=== PATIENT | female | born 1955 | race American Indian/Alaskan Native ===

== ENCOUNTER 2016-12-05 08:04 | Outpatient (CLI) | payer MEDICARE ==
[2016-12-05] MEDS ORDERED: XYLOCAINE 1% 20 mL ONE (08:36)
[2016-12-05] MEDS ORDERED: XYLOCAINE 1% 20 mL INFILTRATI ONE (08:52)
== END 2016-12-05 08:05 | disposition home or self-care (01) ==
LOC: WOUND 08:04
PROVIDERS: ATTEND Surgery
DX: L97.511 Non-pressure chronic ulcer of other part of right foot limited to breakdown of skin (principal); I25.10 Atherosclerotic heart disease of native coronary artery without angina pectoris; E11.22 Type 2 diabetes mellitus with diabetic chronic kidney disease; I12.0 Hypertensive chronic kidney disease with stage 5 chronic kidney disease or end stage renal disease; N18.5 Chronic kidney disease, stage 5; K21.9 Gastro-esophageal reflux disease without esophagitis; E03.9 Hypothyroidism, unspecified
CPT/HCPCS: 11720; 11730; G0463

== ENCOUNTER 2016-12-12 08:49 | Outpatient (CLI) | payer MEDICARE ==
[2016-12-12] MEDS ORDERED: XYLOCAINE TOPICAL 4% TP ONE ×2 (09:16→09:24)
== END 2016-12-12 08:50 | disposition home or self-care (01) ==
LOC: WOUND 08:49
PROVIDERS: ATTEND Surgery
DX: L97.511 Non-pressure chronic ulcer of other part of right foot limited to breakdown of skin (principal); I25.10 Atherosclerotic heart disease of native coronary artery without angina pectoris; I12.0 Hypertensive chronic kidney disease with stage 5 chronic kidney disease or end stage renal disease; N18.6 End stage renal disease; K21.9 Gastro-esophageal reflux disease without esophagitis; E03.9 Hypothyroidism, unspecified

== ENCOUNTER 2016-12-19 08:51 | Outpatient (CLI) | payer MEDICARE ==
[2016-12-19] MEDS ORDERED: XYLOCAINE TOPICAL 4% TP ONE ×2 (09:20→10:00)
== END 2016-12-19 08:52 | disposition home or self-care (01) ==
LOC: WOUND 08:51
PROVIDERS: ATTEND Surgery
DX: L97.511 Non-pressure chronic ulcer of other part of right foot limited to breakdown of skin (principal); I25.10 Atherosclerotic heart disease of native coronary artery without angina pectoris; I12.0 Hypertensive chronic kidney disease with stage 5 chronic kidney disease or end stage renal disease; N18.6 End stage renal disease; K21.9 Gastro-esophageal reflux disease without esophagitis; E03.9 Hypothyroidism, unspecified
CPT/HCPCS: 99213; G0463

== ENCOUNTER 2016-12-28 10:16 | Outpatient (CLI) | payer MEDICARE ==
[2016-12-28] MEDS ORDERED: XYLOCAINE TOPICAL 2% ONE (10:36)
[2016-12-28] MEDS ORDERED: XYLOCAINE TOPICAL 4% TP ONE (10:48)
[2016-12-28] MEDS ORDERED: TRIPLE ANTIBIOTIC TP ONE (11:48)
== END 2016-12-28 10:17 | disposition home or self-care (01) ==
LOC: WOUND 10:16
PROVIDERS: ATTEND Podiatrist
DX: I70.235 Atherosclerosis of native arteries of right leg with ulceration of other part of foot (principal); L97.511 Non-pressure chronic ulcer of other part of right foot limited to breakdown of skin; I12.0 Hypertensive chronic kidney disease with stage 5 chronic kidney disease or end stage renal disease; Z99.2 Dependence on renal dialysis
CPT/HCPCS: 99215; A6250; G0463

== ENCOUNTER 2016-12-28 12:23 | Outpatient (CLI) | payer MEDICARE ==
--- NOTE | 2016-12-28 15:31 | XRay Report ---
Chest 2 views: History: Hypertension. Findings: Borderline cardiomegaly. Trachea is midline. Sternal wires stable. No acute consolidation, pneumothorax or pleural effusion. Impression: No acute cardiopulmonary findings.
== END 2016-12-28 12:24 | disposition home or self-care (01) ==
LOC: XRAY 12:23
PROVIDERS: ATTEND Surgery
DX: I12.0 Hypertensive chronic kidney disease with stage 5 chronic kidney disease or end stage renal disease (principal); N18.6 End stage renal disease; K21.9 Gastro-esophageal reflux disease without esophagitis; J45.909 Unspecified asthma, uncomplicated; J18.9 Pneumonia, unspecified organism
CPT/HCPCS: 71020

== ENCOUNTER 2017-01-04 09:01 | Outpatient (CLI) | payer MEDICARE ==
[2017-01-04] MEDS ORDERED: XYLOCAINE TOPICAL 4% TP ONE ×2 (09:06→09:22)
== END 2017-01-04 09:02 | disposition home or self-care (01) ==
LOC: WOUND 09:01
PROVIDERS: ATTEND Podiatrist
DX: I70.235 Atherosclerosis of native arteries of right leg with ulceration of other part of foot (principal); L97.511 Non-pressure chronic ulcer of other part of right foot limited to breakdown of skin; I12.0 Hypertensive chronic kidney disease with stage 5 chronic kidney disease or end stage renal disease; N18.5 Chronic kidney disease, stage 5; B35.1 Tinea unguium; Z99.2 Dependence on renal dialysis
CPT/HCPCS: 97597

== ENCOUNTER 2017-01-04 10:30 | Outpatient (CLI) | payer MEDICARE ==
--- NOTE | 2017-01-04 11:33 | XRay Report ---
Right foot 3 views: History: Ulceration hallux/pain. Findings: Generalized severe osteopenia. No periosteal reaction or lytic lesion. Arthritic changes in the first tarsometatarsal and metatarsophalangeal and interphalangeal joint and interphalangeal joints of second, third, fourth and fifth toes. There is suspected severe osteopenia with ill-defined ungual tuft great toe right foot probably related to osteomyelitis. Impression: Findings as detailed above. If clinically indicated MRI scan may be recommended. Impression: No obvious radiographic evidence of osteomyelitis.
== END 2017-01-04 10:31 | disposition home or self-care (01) ==
LOC: XRAY 10:30
PROVIDERS: ATTEND Podiatrist
DX: L97.519 Non-pressure chronic ulcer of other part of right foot with unspecified severity (principal); M19.071 Primary osteoarthritis, right ankle and foot; M85.871 Other specified disorders of bone density and structure, right ankle and foot; I12.0 Hypertensive chronic kidney disease with stage 5 chronic kidney disease or end stage renal disease; N18.6 End stage renal disease; J45.909 Unspecified asthma, uncomplicated

== ENCOUNTER 2017-01-11 09:05 | Outpatient (CLI) | payer MEDICARE ==
[2017-01-11] MEDS ORDERED: XYLOCAINE TOPICAL 4% TP ONE ×2 (09:12→09:24)
== END 2017-01-11 09:06 | disposition home or self-care (01) ==
LOC: WOUND 09:05
PROVIDERS: ATTEND Podiatrist
DX: I70.235 Atherosclerosis of native arteries of right leg with ulceration of other part of foot (principal); L97.511 Non-pressure chronic ulcer of other part of right foot limited to breakdown of skin; I12.0 Hypertensive chronic kidney disease with stage 5 chronic kidney disease or end stage renal disease; N18.5 Chronic kidney disease, stage 5; I96 Gangrene, not elsewhere classified; Z99.2 Dependence on renal dialysis
CPT/HCPCS: 99214; G0463

== ENCOUNTER 2017-01-18 09:03 | Outpatient (CLI) | payer MEDICARE ==
[~2017-01-18 09:03] MED LIST: XYLOCAINE TOPICAL 4% TP ONE
[2017-01-18] MEDS ORDERED: XYLOCAINE TOPICAL 4% TP ONE (09:19)
[2017-01-18] MEDS ORDERED: AD OINTMENT TP ONE (09:48)
[2017-01-19] MEDS ORDERED: AD OINTMENT TP SCH (10:00)
== END 2017-01-18 09:04 | disposition home or self-care (01) ==
LOC: WOUND 09:03
PROVIDERS: ATTEND Podiatrist
DX: I70.235 Atherosclerosis of native arteries of right leg with ulceration of other part of foot (principal); L97.511 Non-pressure chronic ulcer of other part of right foot limited to breakdown of skin; I12.0 Hypertensive chronic kidney disease with stage 5 chronic kidney disease or end stage renal disease; N18.5 Chronic kidney disease, stage 5; I96 Gangrene, not elsewhere classified; Z99.2 Dependence on renal dialysis
CPT/HCPCS: 99214; A6250; G0463

== ENCOUNTER 2017-01-31 13:43 | Outpatient (CLI) | payer MEDICARE | END 2017-01-31 13:44 | disposition home or self-care (01) | LOC: WOUND 13:43 | PROVIDERS: ATTEND Nurse Practitioner | DX: I70.235 Atherosclerosis of native arteries of right leg with ulceration of other part of foot (principal); L97.511 Non-pressure chronic ulcer of other part of right foot limited to breakdown of skin; I12.0 Hypertensive chronic kidney disease with stage 5 chronic kidney disease or end stage renal disease; N18.6 End stage renal disease; Z99.2 Dependence on renal dialysis; I96 Gangrene, not elsewhere classified; M86.68 Other chronic osteomyelitis, other site | CPT/HCPCS: G0277 ×2; 99183 ==

== ENCOUNTER 2017-02-01 11:57 | Outpatient (CLI) | payer MEDICARE ==
[2017-02-01] MEDS ORDERED: XYLOCAINE TOPICAL 4% TP ONE ×2 (12:10→15:47)
== END 2017-02-01 11:58 | disposition home or self-care (01) ==
LOC: WOUND 11:57
PROVIDERS: ATTEND Podiatrist
DX: I70.235 Atherosclerosis of native arteries of right leg with ulceration of other part of foot (principal); L97.511 Non-pressure chronic ulcer of other part of right foot limited to breakdown of skin; I12.0 Hypertensive chronic kidney disease with stage 5 chronic kidney disease or end stage renal disease; N18.6 End stage renal disease; Z99.2 Dependence on renal dialysis; I96 Gangrene, not elsewhere classified; Z96.642 Presence of left artificial hip joint
CPT/HCPCS: 99214; G0463

== ENCOUNTER 2017-02-04 12:26 | Outpatient (CLI) | payer MEDICARE | END 2017-02-04 12:27 | disposition home or self-care (01) | LOC: WOUND 12:26 | PROVIDERS: ATTEND Internal Medicine | DX: I70.235 Atherosclerosis of native arteries of right leg with ulceration of other part of foot (principal); L97.511 Non-pressure chronic ulcer of other part of right foot limited to breakdown of skin; I12.0 Hypertensive chronic kidney disease with stage 5 chronic kidney disease or end stage renal disease; N18.6 End stage renal disease; I96 Gangrene, not elsewhere classified; M86.68 Other chronic osteomyelitis, other site; Z99.2 Dependence on renal dialysis | CPT/HCPCS: G0277 ×2; 99183 ==

== ENCOUNTER 2017-02-06 13:03 | Outpatient (CLI) | payer MEDICARE | END 2017-02-06 13:04 | disposition home or self-care (01) | LOC: WOUND 13:03 | PROVIDERS: ATTEND Surgery | DX: I70.235 Atherosclerosis of native arteries of right leg with ulceration of other part of foot (principal); L97.511 Non-pressure chronic ulcer of other part of right foot limited to breakdown of skin; M86.68 Other chronic osteomyelitis, other site; I12.0 Hypertensive chronic kidney disease with stage 5 chronic kidney disease or end stage renal disease; N18.6 End stage renal disease; Z99.2 Dependence on renal dialysis; I96 Gangrene, not elsewhere classified; Z96.642 Presence of left artificial hip joint | CPT/HCPCS: G0277 ×2; 99183 ==

== ENCOUNTER 2017-02-07 13:22 | Outpatient (CLI) | payer MEDICARE | END 2017-02-07 13:23 | disposition home or self-care (01) | LOC: WOUND 13:22 | PROVIDERS: ATTEND Nurse Practitioner | DX: I70.235 Atherosclerosis of native arteries of right leg with ulceration of other part of foot (principal); L97.511 Non-pressure chronic ulcer of other part of right foot limited to breakdown of skin; I12.0 Hypertensive chronic kidney disease with stage 5 chronic kidney disease or end stage renal disease; N18.5 Chronic kidney disease, stage 5; I96 Gangrene, not elsewhere classified; Z99.2 Dependence on renal dialysis; Z96.642 Presence of left artificial hip joint | CPT/HCPCS: G0277 ×2; 99183 ==

== ENCOUNTER 2017-02-08 08:28 | Outpatient (CLI) | payer MEDICARE ==
[2017-02-08] MEDS ORDERED: XYLOCAINE TOPICAL 4% TP ONE ×2 (08:43)
== END 2017-02-08 08:29 | disposition home or self-care (01) ==
LOC: WOUND 08:28
PROVIDERS: ATTEND Podiatrist
DX: I70.235 Atherosclerosis of native arteries of right leg with ulceration of other part of foot (principal); L97.511 Non-pressure chronic ulcer of other part of right foot limited to breakdown of skin; I12.0 Hypertensive chronic kidney disease with stage 5 chronic kidney disease or end stage renal disease; N18.5 Chronic kidney disease, stage 5; I96 Gangrene, not elsewhere classified; Z99.2 Dependence on renal dialysis; Z96.642 Presence of left artificial hip joint
CPT/HCPCS: G0277; G0463; 99183

== ENCOUNTER 2017-02-11 13:10 | Outpatient (CLI) | payer MEDICARE | END 2017-02-11 13:11 | disposition home or self-care (01) | LOC: WOUND 13:10 | PROVIDERS: ATTEND Internal Medicine | DX: I70.235 Atherosclerosis of native arteries of right leg with ulceration of other part of foot (principal); L97.511 Non-pressure chronic ulcer of other part of right foot limited to breakdown of skin; I12.0 Hypertensive chronic kidney disease with stage 5 chronic kidney disease or end stage renal disease; N18.6 End stage renal disease; I96 Gangrene, not elsewhere classified; Z96.642 Presence of left artificial hip joint; Z99.2 Dependence on renal dialysis | CPT/HCPCS: G0277 ×2; 99183 ==

== ENCOUNTER 2017-02-13 13:13 | Outpatient (CLI) | payer MEDICARE | END 2017-02-13 13:14 | disposition home or self-care (01) | LOC: WOUND 13:13 | PROVIDERS: ATTEND Surgery | DX: I70.235 Atherosclerosis of native arteries of right leg with ulceration of other part of foot (principal); L97.511 Non-pressure chronic ulcer of other part of right foot limited to breakdown of skin; I12.0 Hypertensive chronic kidney disease with stage 5 chronic kidney disease or end stage renal disease; M86.68 Other chronic osteomyelitis, other site; Z99.2 Dependence on renal dialysis; Z96.642 Presence of left artificial hip joint | CPT/HCPCS: G0277 ×2; 99183 ==

== ENCOUNTER 2017-02-26 13:05 | Outpatient (CLI) | payer MEDICARE | END 2017-02-26 13:06 | disposition home or self-care (01) | LOC: WOUND 13:05 | PROVIDERS: ATTEND Internal Medicine | DX: I70.235 Atherosclerosis of native arteries of right leg with ulceration of other part of foot (principal); L97.511 Non-pressure chronic ulcer of other part of right foot limited to breakdown of skin; I12.0 Hypertensive chronic kidney disease with stage 5 chronic kidney disease or end stage renal disease; N18.5 Chronic kidney disease, stage 5; I96 Gangrene, not elsewhere classified; Z99.2 Dependence on renal dialysis; Z96.642 Presence of left artificial hip joint | CPT/HCPCS: G0277 ×2; 99183 ==

== ENCOUNTER 2017-02-27 13:14 | Outpatient (CLI) | payer MEDICARE | END 2017-02-27 13:15 | disposition home or self-care (01) | LOC: WOUND 13:14 | PROVIDERS: ATTEND Surgery | DX: I70.235 Atherosclerosis of native arteries of right leg with ulceration of other part of foot (principal); L97.511 Non-pressure chronic ulcer of other part of right foot limited to breakdown of skin; I12.0 Hypertensive chronic kidney disease with stage 5 chronic kidney disease or end stage renal disease; M86.68 Other chronic osteomyelitis, other site; Z99.2 Dependence on renal dialysis; Z96.642 Presence of left artificial hip joint | CPT/HCPCS: G0277 ×2; 99183 ==

== ENCOUNTER 2017-02-28 11:07 | Outpatient (CLI) | payer MEDICARE | END 2017-02-28 11:08 | disposition home or self-care (01) | LOC: WOUND 11:07 | PROVIDERS: ATTEND Nurse Practitioner | DX: I70.235 Atherosclerosis of native arteries of right leg with ulceration of other part of foot (principal); L97.511 Non-pressure chronic ulcer of other part of right foot limited to breakdown of skin; I12.0 Hypertensive chronic kidney disease with stage 5 chronic kidney disease or end stage renal disease; M86.68 Other chronic osteomyelitis, other site; Z99.2 Dependence on renal dialysis; Z96.642 Presence of left artificial hip joint | CPT/HCPCS: G0277 ×2; 99183 ==

== ENCOUNTER 2017-03-01 09:02 | Outpatient (CLI) | payer MEDICARE ==
[2017-03-01] MEDS ORDERED: XYLOCAINE TOPICAL 4% TP ONE (10:23)
[2017-03-01] MEDS ORDERED: XYLOCAINE TOPICAL 2% TP ONE (10:24)
== END 2017-03-01 09:03 | disposition home or self-care (01) ==
LOC: WOUND 09:02
PROVIDERS: ATTEND Podiatrist
DX: I70.235 Atherosclerosis of native arteries of right leg with ulceration of other part of foot (principal); L97.511 Non-pressure chronic ulcer of other part of right foot limited to breakdown of skin; I12.0 Hypertensive chronic kidney disease with stage 5 chronic kidney disease or end stage renal disease; M86.68 Other chronic osteomyelitis, other site; Z99.2 Dependence on renal dialysis; Z96.642 Presence of left artificial hip joint
CPT/HCPCS: G0277; G0463; 99183

== ENCOUNTER 2017-03-05 12:53 | Outpatient (CLI) | payer MEDICARE | END 2017-03-05 12:54 | disposition home or self-care (01) | LOC: WOUND 12:53 | PROVIDERS: ATTEND Surgery | DX: I70.235 Atherosclerosis of native arteries of right leg with ulceration of other part of foot (principal); L97.511 Non-pressure chronic ulcer of other part of right foot limited to breakdown of skin; I12.0 Hypertensive chronic kidney disease with stage 5 chronic kidney disease or end stage renal disease; N18.6 End stage renal disease; M86.68 Other chronic osteomyelitis, other site; I96 Gangrene, not elsewhere classified; Z99.2 Dependence on renal dialysis; Z96.642 Presence of left artificial hip joint | CPT/HCPCS: G0277 ×2; 99183 ==

== ENCOUNTER 2017-03-06 13:22 | Outpatient (CLI) | payer MEDICARE | END 2017-03-06 13:23 | disposition home or self-care (01) | LOC: WOUND 13:22 | PROVIDERS: ATTEND Surgery | DX: I70.235 Atherosclerosis of native arteries of right leg with ulceration of other part of foot (principal); L97.811 Non-pressure chronic ulcer of other part of right lower leg limited to breakdown of skin; I12.0 Hypertensive chronic kidney disease with stage 5 chronic kidney disease or end stage renal disease; N18.5 Chronic kidney disease, stage 5; I96 Gangrene, not elsewhere classified; Z99.2 Dependence on renal dialysis; Z96.642 Presence of left artificial hip joint | CPT/HCPCS: G0277 ×2; 99183 ==

== ENCOUNTER 2017-03-07 12:56 | Outpatient (CLI) | payer MEDICARE | END 2017-03-07 12:57 | disposition home or self-care (01) | LOC: WOUND 12:56 | PROVIDERS: ATTEND Internal Medicine | DX: I70.235 Atherosclerosis of native arteries of right leg with ulceration of other part of foot (principal); L97.511 Non-pressure chronic ulcer of other part of right foot limited to breakdown of skin; I12.0 Hypertensive chronic kidney disease with stage 5 chronic kidney disease or end stage renal disease; N18.5 Chronic kidney disease, stage 5; I96 Gangrene, not elsewhere classified; Z99.2 Dependence on renal dialysis; Z96.642 Presence of left artificial hip joint | CPT/HCPCS: G0277 ×2; 99183 ==

== ENCOUNTER 2017-03-08 08:29 | Outpatient (CLI) | payer MEDICARE | END 2017-03-08 08:30 | disposition home or self-care (01) | LOC: WOUND 08:29 | PROVIDERS: ATTEND Podiatrist | DX: I70.235 Atherosclerosis of native arteries of right leg with ulceration of other part of foot (principal); L97.511 Non-pressure chronic ulcer of other part of right foot limited to breakdown of skin; I12.0 Hypertensive chronic kidney disease with stage 5 chronic kidney disease or end stage renal disease; N18.6 End stage renal disease; M86.68 Other chronic osteomyelitis, other site; I96 Gangrene, not elsewhere classified; Z99.2 Dependence on renal dialysis; Z96.642 Presence of left artificial hip joint | CPT/HCPCS: G0277 ×2; 99183 ==

== ENCOUNTER 2017-03-20 13:07 | Outpatient (CLI) | payer MEDICARE | END 2017-03-20 13:08 | disposition home or self-care (01) | LOC: WOUND 13:07 | PROVIDERS: ATTEND Surgery | DX: I70.235 Atherosclerosis of native arteries of right leg with ulceration of other part of foot (principal); L97.511 Non-pressure chronic ulcer of other part of right foot limited to breakdown of skin; I12.0 Hypertensive chronic kidney disease with stage 5 chronic kidney disease or end stage renal disease; N18.5 Chronic kidney disease, stage 5; I96 Gangrene, not elsewhere classified; Z99.2 Dependence on renal dialysis; Z96.642 Presence of left artificial hip joint | CPT/HCPCS: G0277 ×2; 99183 ==

== ENCOUNTER 2017-03-21 13:02 | Outpatient (CLI) | payer MEDICARE | END 2017-03-21 13:03 | disposition home or self-care (01) | LOC: WOUND 13:02 | PROVIDERS: ATTEND Nurse Practitioner | DX: I70.235 Atherosclerosis of native arteries of right leg with ulceration of other part of foot (principal); L97.511 Non-pressure chronic ulcer of other part of right foot limited to breakdown of skin; I12.0 Hypertensive chronic kidney disease with stage 5 chronic kidney disease or end stage renal disease; N18.5 Chronic kidney disease, stage 5; I96 Gangrene, not elsewhere classified; Z96.642 Presence of left artificial hip joint | CPT/HCPCS: G0277 ×2; 99183 ==

== ENCOUNTER 2017-03-22 13:12 | Outpatient (CLI) | payer MEDICARE | END 2017-03-22 13:13 | disposition home or self-care (01) | LOC: WOUND 13:12 | PROVIDERS: ATTEND Podiatrist | DX: I70.235 Atherosclerosis of native arteries of right leg with ulceration of other part of foot (principal); L97.511 Non-pressure chronic ulcer of other part of right foot limited to breakdown of skin; I12.0 Hypertensive chronic kidney disease with stage 5 chronic kidney disease or end stage renal disease; N18.5 Chronic kidney disease, stage 5; I96 Gangrene, not elsewhere classified; Z99.2 Dependence on renal dialysis; Z96.642 Presence of left artificial hip joint | CPT/HCPCS: G0277; G0463; 99183; 99213 ==

== ENCOUNTER 2017-04-08 13:11 | Outpatient (CLI) | payer MEDICARE | END 2017-04-08 13:12 | disposition home or self-care (01) | LOC: WOUND 13:11 | PROVIDERS: ATTEND Internal Medicine | DX: I70.235 Atherosclerosis of native arteries of right leg with ulceration of other part of foot (principal); L97.511 Non-pressure chronic ulcer of other part of right foot limited to breakdown of skin; I12.0 Hypertensive chronic kidney disease with stage 5 chronic kidney disease or end stage renal disease; N18.5 Chronic kidney disease, stage 5; Z99.2 Dependence on renal dialysis; I96 Gangrene, not elsewhere classified; Z96.642 Presence of left artificial hip joint | CPT/HCPCS: G0277 ×2; 99183 ==

== ENCOUNTER 2017-04-22 12:15 | Outpatient (CLI) | payer MEDICARE | END 2017-04-22 12:16 | disposition home or self-care (01) | LOC: WOUND 12:15 | PROVIDERS: ATTEND Surgery | DX: I70.235 Atherosclerosis of native arteries of right leg with ulceration of other part of foot (principal); L97.511 Non-pressure chronic ulcer of other part of right foot limited to breakdown of skin; I12.9 Hypertensive chronic kidney disease with stage 1 through stage 4 chronic kidney disease, or unspecified chronic kidney disease; N18.9 Chronic kidney disease, unspecified; A48.0 Gas gangrene; Z96.642 Presence of left artificial hip joint; Z99.2 Dependence on renal dialysis | CPT/HCPCS: G0277 ×2; 99183 ==

== ENCOUNTER 2017-04-23 13:38 | Outpatient (CLI) | payer MEDICARE | END 2017-04-23 13:39 | disposition home or self-care (01) | LOC: WOUND 13:38 | PROVIDERS: ATTEND Surgery | DX: I70.235 Atherosclerosis of native arteries of right leg with ulceration of other part of foot (principal); L97.511 Non-pressure chronic ulcer of other part of right foot limited to breakdown of skin; E11.22 Type 2 diabetes mellitus with diabetic chronic kidney disease; I12.0 Hypertensive chronic kidney disease with stage 5 chronic kidney disease or end stage renal disease; N18.6 End stage renal disease; I96 Gangrene, not elsewhere classified; Z99.2 Dependence on renal dialysis; Z96.642 Presence of left artificial hip joint | CPT/HCPCS: G0277 ×2; 99183 ==

== ENCOUNTER 2017-04-25 11:42 | Outpatient (CLI) | payer MEDICARE | END 2017-04-25 11:43 | disposition home or self-care (01) | LOC: WOUND 11:42 | PROVIDERS: ATTEND Podiatrist | DX: I70.235 Atherosclerosis of native arteries of right leg with ulceration of other part of foot (principal); L97.511 Non-pressure chronic ulcer of other part of right foot limited to breakdown of skin; I12.9 Hypertensive chronic kidney disease with stage 1 through stage 4 chronic kidney disease, or unspecified chronic kidney disease; N18.9 Chronic kidney disease, unspecified; A48.0 Gas gangrene; Z96.642 Presence of left artificial hip joint; Z99.2 Dependence on renal dialysis | CPT/HCPCS: G0277 ×2; 99183 ==

== ENCOUNTER 2017-04-26 11:13 | Outpatient (CLI) | payer MEDICARE | END 2017-04-26 11:14 | disposition home or self-care (01) | LOC: WOUND 11:13 | PROVIDERS: ATTEND Podiatrist | DX: I70.235 Atherosclerosis of native arteries of right leg with ulceration of other part of foot (principal); L97.511 Non-pressure chronic ulcer of other part of right foot limited to breakdown of skin; I12.0 Hypertensive chronic kidney disease with stage 5 chronic kidney disease or end stage renal disease; N18.5 Chronic kidney disease, stage 5; I96 Gangrene, not elsewhere classified; Z96.642 Presence of left artificial hip joint; Z99.2 Dependence on renal dialysis | CPT/HCPCS: G0277; G0463; 99183; 99214 ==

== ENCOUNTER 2017-04-29 13:15 | Outpatient (CLI) | payer MEDICARE | END 2017-04-29 13:16 | disposition home or self-care (01) | LOC: WOUND 13:15 | PROVIDERS: ATTEND Internal Medicine | DX: I70.235 Atherosclerosis of native arteries of right leg with ulceration of other part of foot (principal); L97.811 Non-pressure chronic ulcer of other part of right lower leg limited to breakdown of skin; I12.0 Hypertensive chronic kidney disease with stage 5 chronic kidney disease or end stage renal disease; N18.5 Chronic kidney disease, stage 5; I96 Gangrene, not elsewhere classified; Z99.2 Dependence on renal dialysis; Z96.642 Presence of left artificial hip joint | CPT/HCPCS: G0277 ×2; 99183 ==

== ENCOUNTER 2017-04-30 13:28 | Outpatient (CLI) | payer MEDICARE | END 2017-04-30 13:29 | disposition home or self-care (01) | LOC: WOUND 13:28 | PROVIDERS: ATTEND Surgery | DX: I70.235 Atherosclerosis of native arteries of right leg with ulceration of other part of foot (principal); L97.511 Non-pressure chronic ulcer of other part of right foot limited to breakdown of skin; I12.0 Hypertensive chronic kidney disease with stage 5 chronic kidney disease or end stage renal disease; N18.6 End stage renal disease; Z99.2 Dependence on renal dialysis; I96 Gangrene, not elsewhere classified; Z96.642 Presence of left artificial hip joint | CPT/HCPCS: G0277 ×2; 99183 ==

== ENCOUNTER 2017-05-01 13:17 | Outpatient (CLI) | payer MEDICARE | END 2017-05-01 13:18 | disposition home or self-care (01) | LOC: WOUND 13:17 | PROVIDERS: ATTEND Surgery | DX: I70.235 Atherosclerosis of native arteries of right leg with ulceration of other part of foot (principal); L97.511 Non-pressure chronic ulcer of other part of right foot limited to breakdown of skin; I12.0 Hypertensive chronic kidney disease with stage 5 chronic kidney disease or end stage renal disease; N18.5 Chronic kidney disease, stage 5; I96 Gangrene, not elsewhere classified; Z99.2 Dependence on renal dialysis; Z96.642 Presence of left artificial hip joint | CPT/HCPCS: G0277 ×2; 99183 ==

== ENCOUNTER 2017-05-06 13:04 | Outpatient (CLI) | payer MEDICARE | END 2017-05-06 13:05 | disposition home or self-care (01) | LOC: WOUND 13:04 | PROVIDERS: ATTEND Internal Medicine | DX: I70.235 Atherosclerosis of native arteries of right leg with ulceration of other part of foot (principal); L97.511 Non-pressure chronic ulcer of other part of right foot limited to breakdown of skin; I12.0 Hypertensive chronic kidney disease with stage 5 chronic kidney disease or end stage renal disease; N18.6 End stage renal disease; Z99.2 Dependence on renal dialysis; I96 Gangrene, not elsewhere classified; Z96.642 Presence of left artificial hip joint | CPT/HCPCS: 82962; G0277; 99183 ==

== ENCOUNTER 2017-05-14 12:22 | Outpatient (CLI) | payer MEDICARE | END 2017-05-14 12:23 | disposition home or self-care (01) | LOC: WOUND 12:22 | PROVIDERS: ATTEND Surgery | DX: I70.235 Atherosclerosis of native arteries of right leg with ulceration of other part of foot (principal); L97.511 Non-pressure chronic ulcer of other part of right foot limited to breakdown of skin; I12.0 Hypertensive chronic kidney disease with stage 5 chronic kidney disease or end stage renal disease; N18.5 Chronic kidney disease, stage 5; A48.0 Gas gangrene; Z99.2 Dependence on renal dialysis; Z96.642 Presence of left artificial hip joint | CPT/HCPCS: G0277 ×2; 99183 ==

== ENCOUNTER 2017-05-15 13:14 | Outpatient (CLI) | payer MEDICARE | END 2017-05-15 13:15 | disposition home or self-care (01) | LOC: WOUND 13:14 | PROVIDERS: ATTEND Surgery | DX: I70.235 Atherosclerosis of native arteries of right leg with ulceration of other part of foot (principal); L97.511 Non-pressure chronic ulcer of other part of right foot limited to breakdown of skin; I12.0 Hypertensive chronic kidney disease with stage 5 chronic kidney disease or end stage renal disease; N18.5 Chronic kidney disease, stage 5; A48.0 Gas gangrene; Z99.2 Dependence on renal dialysis; Z96.642 Presence of left artificial hip joint | CPT/HCPCS: G0277 ×2; 99183 ==

== ENCOUNTER 2017-05-16 12:58 | Outpatient (CLI) | payer MEDICARE | END 2017-05-16 12:59 | disposition home or self-care (01) | LOC: WOUND 12:58 | PROVIDERS: ATTEND Nurse Practitioner | DX: I70.235 Atherosclerosis of native arteries of right leg with ulceration of other part of foot (principal); L97.511 Non-pressure chronic ulcer of other part of right foot limited to breakdown of skin; I12.0 Hypertensive chronic kidney disease with stage 5 chronic kidney disease or end stage renal disease; N18.5 Chronic kidney disease, stage 5; A48.0 Gas gangrene; Z99.2 Dependence on renal dialysis; Z96.642 Presence of left artificial hip joint | CPT/HCPCS: G0277 ×2; 99183 ==

== ENCOUNTER 2017-06-28 08:27 | Outpatient (CLI) | payer MEDICARE | END 2017-06-28 08:28 | disposition home or self-care (01) | LOC: WOUND 08:27 | PROVIDERS: ATTEND Podiatrist | DX: T87.89 Other complications of amputation stump (principal); I70.235 Atherosclerosis of native arteries of right leg with ulceration of other part of foot; L97.511 Non-pressure chronic ulcer of other part of right foot limited to breakdown of skin; I12.0 Hypertensive chronic kidney disease with stage 5 chronic kidney disease or end stage renal disease; N18.5 Chronic kidney disease, stage 5; I96 Gangrene, not elsewhere classified; M19.90 Unspecified osteoarthritis, unspecified site; J45.909 Unspecified asthma, uncomplicated; K21.9 Gastro-esophageal reflux disease without esophagitis; Z99.2 Dependence on renal dialysis; Z96.642 Presence of left artificial hip joint; Z89.511 Acquired absence of right leg below knee; Z98.61 Coronary angioplasty status; Y83.5 Amputation of limb(s) as the cause of abnormal reaction of the patient, or of later complication, without mention of misadventure at the time of the procedure | CPT/HCPCS: 99215; G0463 ==

== ENCOUNTER 2017-07-01 12:43 | Outpatient (CLI) | payer MEDICARE | END 2017-07-01 12:44 | disposition home or self-care (01) | LOC: WOUND 12:43 | PROVIDERS: ATTEND Internal Medicine | DX: T87.89 Other complications of amputation stump (principal); I70.235 Atherosclerosis of native arteries of right leg with ulceration of other part of foot; L97.511 Non-pressure chronic ulcer of other part of right foot limited to breakdown of skin; I12.0 Hypertensive chronic kidney disease with stage 5 chronic kidney disease or end stage renal disease; N18.5 Chronic kidney disease, stage 5; K21.9 Gastro-esophageal reflux disease without esophagitis; M19.90 Unspecified osteoarthritis, unspecified site; J45.909 Unspecified asthma, uncomplicated; Z98.61 Coronary angioplasty status; Z99.2 Dependence on renal dialysis; Z89.511 Acquired absence of right leg below knee; Z96.642 Presence of left artificial hip joint; Y83.5 Amputation of limb(s) as the cause of abnormal reaction of the patient, or of later complication, without mention of misadventure at the time of the procedure; I96 Gangrene, not elsewhere classified | CPT/HCPCS: G0277 ×2; 99183 ==

== ENCOUNTER 2017-07-02 13:00 | Outpatient (CLI) | payer MEDICARE | END 2017-07-02 13:01 | disposition home or self-care (01) | LOC: WOUND 13:00 | PROVIDERS: ATTEND Surgery | DX: T87.89 Other complications of amputation stump (principal); E11.621 Type 2 diabetes mellitus with foot ulcer; L97.511 Non-pressure chronic ulcer of other part of right foot limited to breakdown of skin; I70.235 Atherosclerosis of native arteries of right leg with ulceration of other part of foot; I12.0 Hypertensive chronic kidney disease with stage 5 chronic kidney disease or end stage renal disease; N18.5 Chronic kidney disease, stage 5; I96 Gangrene, not elsewhere classified; M19.90 Unspecified osteoarthritis, unspecified site; J45.909 Unspecified asthma, uncomplicated; K21.9 Gastro-esophageal reflux disease without esophagitis; Z99.2 Dependence on renal dialysis; Z96.642 Presence of left artificial hip joint; Z89.511 Acquired absence of right leg below knee; Z98.61 Coronary angioplasty status; Y83.5 Amputation of limb(s) as the cause of abnormal reaction of the patient, or of later complication, without mention of misadventure at the time of the procedure | CPT/HCPCS: G0277 ×2; 99183 ==

== ENCOUNTER 2017-07-04 13:02 | Outpatient (CLI) | payer MEDICARE | END 2017-07-04 13:03 | disposition home or self-care (01) | LOC: WOUND 13:02 | PROVIDERS: ATTEND Nurse Practitioner | DX: T87.89 Other complications of amputation stump (principal); I70.235 Atherosclerosis of native arteries of right leg with ulceration of other part of foot; L97.511 Non-pressure chronic ulcer of other part of right foot limited to breakdown of skin; I12.0 Hypertensive chronic kidney disease with stage 5 chronic kidney disease or end stage renal disease; N18.5 Chronic kidney disease, stage 5; I96 Gangrene, not elsewhere classified; M19.90 Unspecified osteoarthritis, unspecified site; J45.909 Unspecified asthma, uncomplicated; K21.9 Gastro-esophageal reflux disease without esophagitis; Z99.2 Dependence on renal dialysis; Z96.642 Presence of left artificial hip joint; Z98.61 Coronary angioplasty status; Y83.5 Amputation of limb(s) as the cause of abnormal reaction of the patient, or of later complication, without mention of misadventure at the time of the procedure | CPT/HCPCS: G0277 ×2; 99183 ==

== ENCOUNTER 2017-07-05 12:42 | Outpatient (CLI) | payer MEDICARE | END 2017-07-05 12:43 | disposition home or self-care (01) | LOC: WOUND 12:42 | PROVIDERS: ATTEND Podiatrist | DX: T87.89 Other complications of amputation stump (principal); I70.235 Atherosclerosis of native arteries of right leg with ulceration of other part of foot; L97.511 Non-pressure chronic ulcer of other part of right foot limited to breakdown of skin; I12.0 Hypertensive chronic kidney disease with stage 5 chronic kidney disease or end stage renal disease; N18.5 Chronic kidney disease, stage 5; I96 Gangrene, not elsewhere classified; K21.9 Gastro-esophageal reflux disease without esophagitis; M19.90 Unspecified osteoarthritis, unspecified site; J45.909 Unspecified asthma, uncomplicated; Z96.642 Presence of left artificial hip joint; Z99.2 Dependence on renal dialysis; Z98.61 Coronary angioplasty status; Y83.5 Amputation of limb(s) as the cause of abnormal reaction of the patient, or of later complication, without mention of misadventure at the time of the procedure | CPT/HCPCS: G0277 ×2; 99183 ==

== ENCOUNTER 2017-07-10 12:00 | Outpatient (CLI) | payer MEDICARE | END 2017-07-10 12:01 | disposition home or self-care (01) | LOC: WOUND 12:00 | PROVIDERS: ATTEND Surgery | DX: T87.89 Other complications of amputation stump (principal); I12.0 Hypertensive chronic kidney disease with stage 5 chronic kidney disease or end stage renal disease; N18.5 Chronic kidney disease, stage 5; I70.235 Atherosclerosis of native arteries of right leg with ulceration of other part of foot; L97.511 Non-pressure chronic ulcer of other part of right foot limited to breakdown of skin; I96 Gangrene, not elsewhere classified; K21.9 Gastro-esophageal reflux disease without esophagitis; M19.90 Unspecified osteoarthritis, unspecified site; J45.909 Unspecified asthma, uncomplicated; Z99.2 Dependence on renal dialysis; Z96.642 Presence of left artificial hip joint; Z89.511 Acquired absence of right leg below knee; Y83.5 Amputation of limb(s) as the cause of abnormal reaction of the patient, or of later complication, without mention of misadventure at the time of the procedure | CPT/HCPCS: G0277 ×2; 99183 ==

== ENCOUNTER 2017-07-12 12:50 | Outpatient (CLI) | payer MEDICARE | END 2017-07-12 12:51 | disposition home or self-care (01) | LOC: WOUND 12:50 | PROVIDERS: ATTEND Podiatrist | DX: T86.828 Other complications of skin graft (allograft) (autograft) (principal); T87.89 Other complications of amputation stump; I70.235 Atherosclerosis of native arteries of right leg with ulceration of other part of foot; L97.511 Non-pressure chronic ulcer of other part of right foot limited to breakdown of skin; I12.0 Hypertensive chronic kidney disease with stage 5 chronic kidney disease or end stage renal disease; N18.6 End stage renal disease; I96 Gangrene, not elsewhere classified; M19.90 Unspecified osteoarthritis, unspecified site; J45.909 Unspecified asthma, uncomplicated; K21.9 Gastro-esophageal reflux disease without esophagitis; Z98.61 Coronary angioplasty status; Z96.642 Presence of left artificial hip joint; Z99.2 Dependence on renal dialysis; Z89.511 Acquired absence of right leg below knee; Y83.5 Amputation of limb(s) as the cause of abnormal reaction of the patient, or of later complication, without mention of misadventure at the time of the procedure | CPT/HCPCS: G0277; G0463; 99183; 99213 ==

== ENCOUNTER 2017-08-20 07:00 | Day surgery (SDC) | payer MEDICARE ==
[~2017-08-20 07:00] MED LIST changes: +NACL 0.9% 1000 ML 1,000 ML IV SCH; +VANCOMYCIN/NS 1 GM/250 ML 1 GM/250 ML BAG IV NR; -XYLOCAINE TOPICAL 4% TP ONE
[2017-08-20 09:15] LABS: Basophils % (Auto) 0.6 % (0.0-1.8); Eosinophils # (Auto) 0.4 K/mm3 (0.0-0.4); Eosinophils % (Auto) 7.1 % (0.0-4.3); Hematocrit 35.3 % (30.3-42.9); Hemoglobin 10.9 gm/dl (10.1-14.3); Lymphocytes # (Auto) 1.1 K/mm3 (1.2-5.4); Lymphocytes % (Auto) 20.4 % (13.4-35.0); Mean Corpuscular HGB Conc 31 % (30-34); Mean Corpuscular Hemoglobin 27 pg (28-32); Mean Corpuscular Volume 89 fl (79-97); Monocytes # (Auto) 0.6 K/mm3 (0.0-0.8); Monocytes % (Auto) 10.8 % (0.0-7.3); Platelet Count 110 K/mm3 (140-440); Red Blood Count 3.99 M/mm3 (3.65-5.03); Red Cell Distribution Width 18.8 % (13.2-15.2)
--- NOTE | 2017-08-20 09:42 | Anesthesia Consultation ---
Anesthesia Consult and Med Hx Date of service: 08/20/17 - Airway Anesthetic Teeth Evaluation: Poor ROM Head & Neck: Adequate Mental/Hyoid Distance: Adequate Mallampati Class: Class II Intubation Access Assessment: Probably Good - Pulmonary Exam CTA: Yes - Cardiac Exam Cardiac Exam: RRR - Pre-Operative Health Status ASA Pre-Surgery Classification: ASA3 Proposed Anesthetic Plan: General - Pulmonary Hx Asthma: Yes (rare inhaler use) Hx Sleep Apnea: Yes (cpap) - Cardiovascular System Hx Hypertension: Yes Hx Coronary Artery Disease: Yes Hx Heart Attack/AMI: Yes (s/p CABG x 3 ) Hx Percutaneous Transluminal Coronary Angioplasty (PTCA): Yes (2007) Hx Peripheral Vascular Disease: Yes - Gastrointestinal Hx Gastroesophageal Reflux Disease: Yes - Endocrine Hx Renal Disease: Yes Hx End Stage Renal Disease: Yes () - Hematic Hx Anemia: Yes
--- NOTE | 2017-08-20 09:44 | Anesthesia Day of Surgery ---
Anesthesia Day of Surgery - Day of Surgery Patient Examined: Yes Patient H&P Reviewed: Yes Patient is NPO: Yes
[2017-08-20] MEDS ORDERED: PEPCID IV NR (10:00)
[2017-08-20 10:41] LABS: Calcium 9.5 mg/dL (8.4-10.2)
[2017-08-20] MEDS ORDERED: DIPRIVAN 10 MG/ML IV ONE (10:48)
[2017-08-20] MEDS ORDERED: DILAUDID ONE ×2 (10:49→13:52)
[2017-08-20] MEDS ORDERED: XYLOCAINE MPF 2% ONE (10:50)
[2017-08-20] MEDS ORDERED: MARCAINE 0.5% INFILTRATI ONE (11:49)
[2017-08-20 12:08] LABS: Calcium 9.6 mg/dL (8.4-10.2)
[2017-08-20] MEDS ORDERED: ePHEDrine SULFATE ONE (12:38)
[2017-08-20] MEDS ORDERED: NACL 0.9% IR ONE (13:00)
[2017-08-20] MEDS ORDERED: ZOFRAN ONE (13:19)
[2017-08-20] MEDS: DILAUDID IV PRN ×2 (13:51→13:58)
--- NOTE | 2017-08-20 14:02 | Short Stay Summary ---
Short Stay Documentation Date of service: 08/20/17 Narrative H&P: See H&P - History H&P: obtained from office - Allergies and Medications Current Medications: Allergies adhesive tape Allergy (Verified 08/19/17 11:11) Unknown Penicillins Allergy (Verified 08/20/17 12:40) Unknown Home Medications Medication Instructions Recorded Confirmed Last Taken Type Acetaminophen [Acetaminophen TAB] 650 mg PO Q6H PRN tablet 05/31/17 08/18/17 Rx HYDROcodone/APAP 10-325 [[place] 1 each PO Q4H PRN #20 tablet 05/31/17 Unknown Rx 10-325 mg TAB] Losartan [Cozaar] 25 mg PO QDAY tablet 05/31/17 08/19/17 Rx Metoprolol [Lopressor TAB] 25 mg PO BID tablet 05/31/17 Unknown Rx Pantoprazole [Protonix TAB] 40 mg PO QDAY tablet 05/31/17 Unknown Rx B Complex 11/Folic/C/Biot/Zinc 90 mg PO DAILY 08/20/17 08/20/17 08/19/17 History [Dialyvite with Zinc Tablet] Clopidogrel Bisulfate [Clopidogrel] 75 mg PO QDAY 08/20/17 08/20/17 08/20/17 History Famotidine [Pepcid] 20 mg PO DAILY 08/20/17 08/20/17 08/19/17 History amLODIPine [Norvasc] 5 mg PO QDAY 08/20/17 08/20/17 08/19/17 History Active Medications Famotidine (Pepcid) 20 mg IV PREOP NR Stop: 08/20/17 23:59 Last Admin: 08/20/17 12:02 Dose: 20 mg Sodium Chloride (Nacl 0.9% 1000 Ml) 1,000 mls @ 42 mls/hr IV DIRECT NELLIE Last Admin: 08/20/17 09:55 Dose: 42 mls/hr Vancomycin HCl (Vancomycin/Ns 1 Gm/250 Ml) 1 gm in 250 mls @ 166.667 mls/hr IV PREOP NR; Protocol Stop: 08/20/17 23:59 - Brief post op/procedure progress note Date of procedure: 08/20/17 Pre-op diagnosis: Nonhealing Left Below-Knee Amputation Post-op diagnosis: same Procedure: Excisional Debridement of Left Below-Knee Amputation Stump (Wound Measures 15 x 9 x 1 cm) Anesthesia: GETA Surgeon: SALIMA CHAVARRIA Estimated blood loss: minimal Pathology: list (skin and soft tissue and left below-knee amputation) Specimen disposition: discarded Condition: stable - Disposition Condition at discharge: Good Disposition: [id number]/[place]-[id number] Short Stay Discharge Plan Activity: no restrictions Wound: other (wound VAC changes per nursing) Follow up with: SALIMA CHAVARRIA MD [Staff Physician] - 14 Days Prescriptions: HYDROcodone/APAP 7.5-325 [[place] 7.5/325] 1 each PO Q6HR PRN #40 tablet PRN Reason: Pain
--- NOTE | 2017-08-20 14:08 | Operative Report ---
Operative Report Operative Report: Date of Procedure: 08/20/2017 Pre-operative Diagnosis: Nonhealing Right Below-Knee Amputation Post-operative Diagnosis: Same Procedure(s): 1. Excisional Debridement of Right Below-Knee Amputation Stump Surgeon: Dani Laura M.D. Employee Communications Specialist: Fiona Anesthesia: Gen. endotracheal anesthesia EBL: Minimal Counts: Correct Complications: None Condition: Stable Findings: All remaining tissue appeared healthy and well-perfused. The bone was well covered. Specimen: Skin and soft tissue from Righ below-knee amputation was discarded. Indication: The patient is a 62-year-old female with a history of peripheral vascular disease who underwent a right below-knee amputation that developed necrosis at the distal and after being wrapped with tape. She is in need of debridement of the wound and wound VAC placement. She was given the risks, benefits, and alternative procedures and consent to the procedure. Description of Procedure: The patient was brought into the operating room and laid in supine position. After general endotracheal anesthesia was achieved for right leg was prepped and draped in normal sterile fashion. A 10 blade was used to sharply excise around the necrotic skin skin edges of the skin edges at the distal tip of the right below-knee amputation site. Curved Mayos were then used to sharply dissect the skin flap from the underlying soft tissue. The curved Mayos were then used to sharply excise remaining necrotic tissue down to healthy appearing bleeding subcutaneous tissue. The wound did not involve the muscle or bone. Hemostasis within the wound was achieved with a combination of direct pressure and cautery. Once hemostasis was achieved the wound was irrigated and then the wound VAC was placed sterilely and a seal was achieved. The wound was then dressed with a Kerlix roll. The patient tolerated the procedure well. All sponge, needle, and instrument counts were correct. The patient was taken to the recovery area in stable condition.
[2017-08-20] MEDS ORDERED: NORCO 7.5/325 PO PRN (14:27)
[2017-08-20 15:31] VITALS: BP 121/59
== END 2017-08-20 16:40 | disposition home or self-care (01) ==
LOC: OR 07:00 → EDSTATUS 11:15 → OR 16:40
PROVIDERS: ATTEND Surgery Vascular Surgery
DX: T87.89 Other complications of amputation stump (principal); I70.261 Atherosclerosis of native arteries of extremities with gangrene, right leg; I25.10 Atherosclerotic heart disease of native coronary artery without angina pectoris; I12.0 Hypertensive chronic kidney disease with stage 5 chronic kidney disease or end stage renal disease; N18.6 End stage renal disease; K21.9 Gastro-esophageal reflux disease without esophagitis; G47.30 Sleep apnea, unspecified; J45.909 Unspecified asthma, uncomplicated; Z99.89 Dependence on other enabling machines and devices; Z88.0 Allergy status to penicillin; Z91.048 Other nonmedicinal substance allergy status; Z99.2 Dependence on renal dialysis
CPT/HCPCS: 11042; 36415; 80048; 85025; J1170; J2405; J2704; J3370; J7030

== ENCOUNTER 2017-09-20 06:25 | Day surgery (SDC) | payer MEDICARE ==
[~2017-09-20 06:25] MED LIST changes: +PEPCID IV NR
[2017-09-20] MEDS ORDERED: NACL BACTERIOSTATIC INFILTRATI ONE (06:44)
[2017-09-20] MEDS ORDERED: DIPRIVAN 10 MG/ML IV ONE (07:04)
[2017-09-20] MEDS ORDERED: DILAUDID ONE ×3 (07:05→11:14)
[2017-09-20] MEDS ORDERED: ZOFRAN ONE (07:05)
[2017-09-20] MEDS ORDERED: XYLOCAINE MPF 2% ONE (07:05)
[2017-09-20 07:09] LABS: Basophils % (Auto) 0.8 % (0.0-1.8); Eosinophils # (Auto) 0.2 K/mm3 (0.0-0.4); Eosinophils % (Auto) 5.7 % (0.0-4.3); Hematocrit 32.8 % (30.3-42.9); Hemoglobin 10.4 gm/dl (10.1-14.3); Lymphocytes # (Auto) 0.9 K/mm3 (1.2-5.4); Lymphocytes % (Auto) 21.4 % (13.4-35.0); Mean Corpuscular HGB Conc 32 % (30-34); Mean Corpuscular Hemoglobin 27 pg (28-32); Mean Corpuscular Volume 84 fl (79-97); Monocytes # (Auto) 0.5 K/mm3 (0.0-0.8); Monocytes % (Auto) 11.4 % (0.0-7.3); Red Blood Count 3.89 M/mm3 (3.65-5.03); Red Cell Distribution Width 19.4 % (13.2-15.2)
--- NOTE | 2017-09-20 07:13 | Anesthesia Day of Surgery ---
Anesthesia Day of Surgery - Day of Surgery Patient Examined: Yes Patient H&P Reviewed: Yes Patient is NPO: Yes Beta Blockers: Yes
--- NOTE | 2017-09-20 07:13 | Anesthesia Consultation ---
Anesthesia Consult and Med Hx Date of service: 09/20/17 - Airway Anesthetic Teeth Evaluation: Poor ROM Head & Neck: Adequate Mental/Hyoid Distance: Adequate Mallampati Class: Class II Intubation Access Assessment: Probably Good - Pulmonary Exam CTA: Yes - Cardiac Exam Cardiac Exam: RRR - Pre-Operative Health Status ASA Pre-Surgery Classification: ASA4 Proposed Anesthetic Plan: General - Pulmonary Hx Smoking: Yes (past hx) Hx Asthma: Yes (rare inhaler use) Hx Sleep Apnea: Yes (CPAP) - Cardiovascular System Hx Hypertension: Yes Hx Coronary Artery Disease: Yes (s/p CABG) Hx Heart Attack/AMI: Yes Hx Percutaneous Transluminal Coronary Angioplasty (PTCA): Yes Hx Peripheral Vascular Disease: Yes ( and b/l carotid stenosis) - Central Nervous System Hx Psychiatric Problems: No - Gastrointestinal Hx Gastroesophageal Reflux Disease: Yes - Endocrine Hx Renal Disease: Yes Hx End Stage Renal Disease: Yes (on HD T/T/S) - Hematic Hx Anemia: Yes - Other Systems Hx Cancer: No - Additional Comments Anesthesia Medical History Comments: tolerated GA well for BKA on 08/20/17
[2017-09-20] MEDS ORDERED: SUBLIMAZE IV PRN (07:14)
[2017-09-20] MEDS ORDERED: NACL 0.9% 500 ML 500 ML ONE (07:54)
[2017-09-20] MEDS ORDERED: XYLOCAINE 1% 20 mL ONE (07:54)
[2017-09-20] MEDS ORDERED: HEPARIN 10,000 UNITS/10 ML ONE (07:54)
[2017-09-20] MEDS ORDERED: MARCAINE 0.5% 30 ML INFILTRATI ONE (07:54)
[2017-09-20] MEDS ORDERED: RIFADIN ONE (07:55)
[2017-09-20 08:10] LABS: Mean Platelet Volume 8.9 fl (6-12); Platelet Count 78 K/mm3 (140-440)
[2017-09-20] MEDS ORDERED: NACL 0.9% IV ONE (08:13)
[2017-09-20] MEDS ORDERED: MARCAINE 0.5% INFILTRATI ONE (08:13)
[2017-09-20] MEDS ORDERED: NACL 0.9% IR ONE (08:13)
[2017-09-20] MEDS ORDERED: NACL 0.9% 500 ML IRRIGATION ONE (08:13)
[2017-09-20] MEDS ORDERED: HEPARIN 10,000 UNITS/10 ML IR ONE (08:13)
[2017-09-20] MEDS ORDERED: OMNIPAQUE (240mg) IV ONE (08:13)
[2017-09-20] MEDS ORDERED: DECADRON ONE (08:48)
[2017-09-20] MEDS ORDERED: NACL 0.9% 100 ML ONE (08:56)
[2017-09-20] MEDS ORDERED: NEO SYNEPHRINE/NS Syringe(OR USE) IV ONE (09:00)
--- NOTE | 2017-09-20 12:29 | Short Stay Summary ---
Short Stay Documentation Date of service: 09/20/17 Narrative H&P: See H&P - History H&P: obtained from office - Allergies and Medications Current Medications: Allergies adhesive tape Allergy (Verified 09/18/17 15:51) Unknown Penicillins Allergy (Verified 09/18/17 15:51) Unknown Home Medications Medication Instructions Recorded Confirmed Last Taken Type Acetaminophen [Acetaminophen TAB] 650 mg PO Q6H PRN tablet 05/31/17 09/18/17 Rx HYDROcodone/APAP 10-325 [[place] 1 each PO Q4H PRN #20 tablet 05/31/17 09/18/17 Unknown Rx 10-325 mg TAB] Losartan [Cozaar] 25 mg PO QDAY tablet 05/31/17 09/20/17 09/19/17 09:00 Rx Metoprolol [Lopressor TAB] 25 mg PO BID tablet 05/31/17 09/20/17 09/19/17 21: 00 Rx Pantoprazole [Protonix TAB] 40 mg PO QDAY tablet 05/31/17 09/20/17 09/19/17 09: 00 Rx B Complex 11/Folic/C/Biot/Zinc 90 mg PO DAILY 08/20/17 09/18/17 08/19/17 History [Dialyvite with Zinc Tablet] Clopidogrel Bisulfate [Clopidogrel] 75 mg PO QDAY 08/20/17 09/20/17 09/20/17 04: 00 History Famotidine [Pepcid] 20 mg PO DAILY 08/20/17 09/20/17 09/19/17 09:00 History HYDROcodone/APAP 7.5-325 [[place] 1 each PO Q6HR PRN #40 tablet 08/20/17 09/20/17 09/19/17 12:00 Rx 7.5/325] amLODIPine [Norvasc] 5 mg PO QDAY 08/20/17 09/20/17 09/19/17 09:00 History Aspirin 81 mg PO DAILY 09/20/17 09/20/17 09/20/17 04:00 History Active Medications Famotidine (Pepcid) 20 mg IV PREOP NR Stop: 09/20/17 23:59 Last Admin: 09/20/17 07:04 Dose: 20 mg Fentanyl (Sublimaze) 50 mcg IV Q5MIN PRN PRN Reason: Pain , Severe (7-10) Stop: 09/20/17 18:00 Sodium Chloride (Nacl 0.9% 1000 Ml) 1,000 mls @ 42 mls/hr IV DIRECT NELLIE Last Admin: 09/20/17 07:00 Dose: 42 mls/hr Vancomycin HCl (Vancomycin/Ns 1 Gm/250 Ml) 1 gm in 250 mls @ 166.667 mls/hr IV PREOP NR; Protocol Stop: 09/20/17 23:01 Last Admin: 09/20/17 07:47 Dose: 166.667 mls/hr Sodium Chloride (Nacl 0.9% 1000 Ml) 1,000 mls @ 75 mls/hr IV DIRECT NELLIE - Brief post op/procedure progress note Date of procedure: 09/20/17 Pre-op diagnosis: Complications of Dialysis Access and Nonhaling Right BKA Post-op diagnosis: same Procedure: 1. Creation of Left Brachial Artery to Axillary Vein AVG with 6 mm x 9 x 10 Viabahn Hybrid Graft 2. Partial Excision of Left AVG 3. Excisional Debridement of Right BKA Stump (Wound Measures 14 x 9 x 0.5 cm) Anesthesia: GETA Surgeon: SALIMA CHAVARRIA Estimated blood loss: other (250 ml) Pathology: list (portion od left avg, soft tissue of right BKA) Specimen disposition: discarded Condition: stable - Disposition Condition at discharge: Good Disposition: [id number] TO HOME OR SELFCARE Short Stay Discharge Plan Activity: other (No heavy lifting with left arm) Wound: open to air, other (Okay to wash the wound with soap and water but do not soak in water) Follow up with: SALIMA CHAVARRIA MD [Staff Physician] - 14 Days Prescriptions: HYDROcodone/ACETAMINOPHEN [[place] 7.5-325 Tablet] 1 each PO Q6HR PRN #40 tablet PRN Reason: Pain
--- NOTE | 2017-09-20 14:40 | Post Anesthesia Evaluation ---
- Post Anesthesia Evaluation Patient Participated: Yes Airway Patent: Yes Stable Respiratory Function: Yes Nausea/Vomiting: No Temp > 96.8F: Yes Pain Manageable: Yes Adequeate Hydration: Yes Anesthesia Complications: No
[2017-09-20 15:41] VITALS: BP 116/63
--- NOTE | 2017-09-20 15:56 | Operative Report ---
Operative Report Operative Report: Date of Procedure: 09/20/2017 Pre-operative Diagnosis: Complications of Dialysis Access and Nonhealing Right Below-Knee Amputation Post-operative Diagnosis: Same Procedure(s): 1. Creation of Left Brachial Artery to Axillary Vein AVG with 6 mm x 9 x 10 Viabahn [place] Hybrid Graft 2. Angioplasty and Stent of Left Subclavian Vein with 10 x 40 Balloon and 10 x 10 cm Viabahn Stent Graft 3. Radiologic Supervision with Interpretation 4. Partial Excision of Left AVG 5. Excisional Debridement of Right BKA Stump (Wound Measures 14 x 9 x 0.5 cm) Surgeon: Dani Laura M.D. Insurance Application Investigator: None Anesthesia: Gen. Endotracheal Anesthesia EBL: 250 mL Counts: Correct Complications: None Condition: Stable Findings: Successful creation of left arm AV graft with palpable thrill at the completion of the case. Right below-knee dictation stump was debrided to healthy tissue there was no evidence of infection and the bone was well covered. Specimen: Portion of left AV graft and soft tissue of right below-knee amputation were discarded. Indication: The patient is a 62-year-old female with a history of end-stage renal disease who has had multiple AV access in her left upper extremity. Her most recent access in her left upper extremity thrombosed and began to spontaneously drain or hematoma from an ulcerated area over her previous graft. She is in need of excision of that portion of the graft as well as creation of a new AV graft. Additionally she has a nonhealing right lower knee amputation that requires excisional debridement. She was given the risks, benefits, and alternative procedures and has consented to the procedure. Description of Procedure: The patient was brought into the operating room and laid in supine position. After general endotracheal anesthesia was achieved for left arm was prepped and draped in normal sterile fashion. A longitudinal incision was created in the left arm just distal to the axillary crease on the medial aspect of the arm and carried down to the axillary vein using sharp dissection. The axillary vein was dissected out circumferentially and controlled with a vessel loop. A micropuncture needle was used to access the vein and the micropuncture sheath was advanced possibility technique. A 6 Lebanese sheath was advanced possibility technique and then a family rounds performed. 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 The remainder of the central venous system appeared widely patent. A 0.035 Glidewire and vertebral catheter were used to cross the occlusion and then the Glidewire was exchanged for a 0.035 Bentson wire. The 6 Lebanese sheath was then exchanged for the 14 Lebanese peel- away sheath which was advanced by Seldinger technique. The 6 mm x 9 x 10 Viabahn [place] Hybrid Graft was advanced over the Bentson wire and into the 14 Lebanese sheath. The 14 Lebanese sheath was peeled away while applying forward pressure on the graft. Once the graft was deployed a 10 Lebanese sheath was placed in the distal portion of the graft and a 10 x 40 balloon was advanced over the wire and angioplasty of the subclavian vein was performed. A 10 x 10 cm Viabahn Stent Graft was then deployed, centered across the subclavian vein occlusion, with approximately 1 cm overlap into the stent of the [place] Hybrid Graft. The 10 x 40 balloon was then used to post dilate the stent graft as well as the overlap of the stents. A final venogram was performed that demonstrated the stents were widely patent with brisk flow of contrast into the central venous system and less than 5% residual stenosis.
== END 2017-09-20 15:53 | disposition home or self-care (01) ==
LOC: OR 06:25
PROVIDERS: ATTEND Surgery Vascular Surgery
DX: T82.898A Other specified complication of vascular prosthetic devices, implants and grafts, initial encounter (principal); T87.9 Unspecified complications of amputation stump; I12.0 Hypertensive chronic kidney disease with stage 5 chronic kidney disease or end stage renal disease; N18.6 End stage renal disease; I25.10 Atherosclerotic heart disease of native coronary artery without angina pectoris; I25.2 Old myocardial infarction; I73.9 Peripheral vascular disease, unspecified; J45.909 Unspecified asthma, uncomplicated; G47.30 Sleep apnea, unspecified; Z99.89 Dependence on other enabling machines and devices; Z95.1 Presence of aortocoronary bypass graft; Z87.891 Personal history of nicotine dependence; Z88.0 Allergy status to penicillin; Z91.048 Other nonmedicinal substance allergy status; K21.9 Gastro-esophageal reflux disease without esophagitis
CPT/HCPCS: 11042; 11045; 36415; 36903; 80048; 82962; 85025; C1725; C1768; C1874; C1894; C2629; J1100; J1170; J1644; J2370; J2405; J2704; J3370; J3490; J7030; J7040; Q9966